=== PATIENT | male | born 1975 | race African-American/Black ===

== ENCOUNTER 2020-02-11 09:05 | Emergency (ER) | payer OTHER ==
[~2020-02-11] VITALS: Ht 185.4 cm; Wt 89.0 kg
--- NOTE | 2020-02-11 09:23 | PHYS DOC ---
Past History Past Medical History: Arthritis Past Surgical History: No Surgical History Alcohol Use: Occasionally Drug Use: None General Adult EDM: Chief Complaint: TESTICULAR PAIN OR INJURY HPI: HPI: The history was obtained from the patient. Patient is a 44-year-old male with PMH [id number] diabetes, asthma who presents with a chief complaint of right testicle pain. Patient states he has had intermittent right testicle pain over the past 2 weeks. He states it feels similar to a "pinprick." He states he did have one brief episode of abdominal aching pain that lasted a few seconds and resolved. Denies nausea or vomiting. Notes he has had similar symptoms years ago and had an ultrasound performed. He thinks that he maybe was diagnosed with epididymitis. States she is sexually active with one partner. Does note history of sexually transmitted infection in college. Denies any current penile discharge. Denies dysuria, hematuria, or polyuria. Denies any swelling or skin changes to the testicle. Assess. States nothing seems to trigger the discomfort. Has not tried anything for pain. Denies any pain with bowel movement. No other complaints. Review of Systems: Review of Systems: Constitutional: Denies fever or chills Eyes: Denies change in visual acuity HENT: Denies nasal congestion or sore throat Respiratory: Denies cough or shortness of breath Cardiovascular: Denies chest pain or edema GI: Denies abdominal pain, nausea, vomiting, bloody stools or diarrhea : Positive for testicle pain Musculoskeletal: Denies back pain or joint pain Integument: Denies rash Neurologic: Denies headache, focal weakness or sensory changes Endocrine: Denies polyuria or polydipsia Lymphatic: Denies swollen glands Psychiatric: Denies depression or anxiety Heart Score: Risk Factors: Risk Factors: DM, Current or recent (<one month) smoker, HTN, HLP, family history of CAD, obesity. Risk Scores: Score 0 - 3: 2.5% MACE over next 6 weeks - Discharge Home Score 4 - 6: 20.3% MACE over next 6 weeks - Admit for Clinical Observation Score 7 - 10: 72.7% MACE over next 6 weeks - Early Invasive Strategies Physical Exam: PE: Constitutional: Well developed, well nourished, no acute distress, non-toxic appearance. [] HENT: Normocephalic, atraumatic, bilateral external ears normal, oropharynx moist, no oral exudates, nose normal. [] Eyes: PERRLA, EOMI, conjunctiva normal, no discharge. [] Neck: Normal range of motion, no tenderness, supple, no stridor. [] Cardiovascular:Heart rate regular rhythm, no murmur [] Lungs & Thorax: Bilateral breath sounds clear to auscultation [] Abdomen: Bowel sounds normal, soft, no tenderness, no masses, no pulsatile masses. [] Skin: Warm, dry, no erythema, no rash. [] Back: No tenderness, no CVA tenderness. [] Extremities: No tenderness, no cyanosis, no clubbing, ROM intact, no edema. [] Neurologic: Alert and oriented X 3, normal motor function, normal sensory function, no focal deficits noted. [] Psychologic: Affect normal, judgement normal, mood normal. [] Current Patient Data: Labs: Laboratory Tests Test 02/11/20 09:25 Urine Collection Type Unknown Urine Color Yellow Urine Clarity Clear Urine pH 6.0 Urine Specific [place] 1.010 Urine Protein Neg Urine Glucose (UA) Neg mg/dL Urine Ketones (Stick) Neg mg/dL Urine Blood Neg Urine Nitrite Neg Urine Bilirubin Neg Urine Urobilinogen Dipstick 0.2 mg/dL Urine Leukocyte Esterase Neg Urine RBC 0 /HPF Urine WBC Occ /HPF Urine Squamous Epithelial Cells Occ /LPF Urine Bacteria 0 /HPF Vital Signs: Vital Signs Date Time Temp Pulse Resp B/P (MAP) Pulse Ox O2 Delivery O2 Flow Rate FiO2 02/11/20 09:38 97.9 78 18 164/93 (116) 96 Room Air EKG: EKG: [] Radiology/Procedures: Radiology/Procedures: [][address] [address] IMAGING REPORT Signed PATIENT: NAVARRO GARCIA ACCOUNT: [id number] : 1975 LOCATION: ER AGE: 44 SEX: M EXAM STATUS: REG ER ORD. PHYSICIAN: JASWINDER ARIAS DO REASON: right testicle pain PROCEDURE: TESTICULAR/SCROTUM EXAM: Scrotal Ultrasound INDICATION: Reason: right testicle pain / Spl. Instructions: / History: TECHNIQUE: Real-time ultrasound of the scrotum with permanent freeze-frame documentation. COMPARISON:?None. FINDINGS: RIGHT: TESTICLE: 4.5 x 3.5 x 2.0 cm. Unremarkable. Normal blood flow. EPIDIDYMIS: Unremarkable. OTHER: No varicocele or hydrocele. LEFT: TESTICLE: 3.9 x 3.3 x 1.9 cm. Unremarkable. Normal blood flow. EPIDIDYMIS: Normal. Tiny epididymal head cyst measuring 3 x 3 x 2 mm noted. OTHER: Small left hydrocele SCROTAL WALL: Unremarkable. IMPRESSION: Small left hydrocele. Otherwise normal scrotal ultrasound with no evidence of testicular torsion. Electronically signed by: Rowan Lewis MD (02/11/2020 10:03 AM) [id number] DICTATED AND SIGNED BY: ROWAN LEWIS MD DATE: 02/11/20 1003 CC: OSKAR THAYER; JASWINDER ARIAS DO ~ Course & Med Decision Making: Course & Med Decision Making Pertinent Labs and Imaging studies reviewed. (See chart for details) [] Patient is a well-appearing 44-year-old male who presents with chief complaint of intermittent right testicular discomfort. Initial vital signs normal. Exam overall reassuring. No testicular tenderness. No inguinal masses noted. Ultrasound overall reassuring. Normal flow to the testicles bilaterally. No obvious signs of epididymitis. Urinalysis without evidence of infection. Chlamydia and gonorrhea cultures via urine sample are pending. Given there are no signs of clinical infection antibiotics to be deferred. The exact cause of his discomfort is unknown however could related to a small epididymal cyst. He will be given a urology referral to follow-up with. return precautions discussed and understood. Encouraged to use NSAIDs for pain relief. Instructed to follow-up with his primary care physician in the next 2 to 3 days. Stable for discharge home. Dragon Disclaimer: Angi Disclaimer: This electronic medical record was generated, in whole or in part, using a voice recognition dictation system. Departure Departure: Impression: Primary Impression: Right testicular pain Disposition: 01 HOME/RESIDENCE PRIOR TO ADM Condition: STABLE Referrals: OSKAR THAYER (PCP) Patient Instructions: Testicular Problems and Self-Exam Additional Instructions: Dr. David Alexander [place] [address] [place] [address] [address] [place] [address] Call [place] [phone] Justification of Admission: Justification of Admission: Justification of Admission Dx: N/A JASWINDER ARIAS DO Feb 11, 2020 09:23
[2020-02-11 09:55] LABS: BACTERIA,URINE 0 /HPF (0-FEW); BILIRUBIN,URINE NEG (NEG); CLARITY,URINE CLEAR; COLOR,URINE YELLOW; GLUCOSE,URINE NEG (NEG); NITRITE,URINE NEG (NEG); RBC,URINE 0 /HPF (0-2); SQUAMOUS EPITHELIAL CELL,UR OCC /LPF; UROBILINOGEN,URINE 0.2 mg/dL (0.2 mg/dL); WBC,URINE OCC /HPF (0-4)
--- NOTE | 2020-02-11 10:06 | RAD ---
EXAM: Scrotal Ultrasound INDICATION: Reason: right testicle pain / Spl. Instructions: / History: ? TECHNIQUE: Real-time ultrasound of the scrotum with permanent freeze-frame documentation. ? COMPARISON:?None. ? FINDINGS: RIGHT: TESTICLE: 4.5 x 3.5 x 2.0 cm. Unremarkable. Normal blood flow. EPIDIDYMIS: Unremarkable. OTHER: No varicocele or hydrocele. LEFT: TESTICLE: 3.9 x 3.3 x 1.9 cm. Unremarkable. Normal blood flow. EPIDIDYMIS: Normal. Tiny epididymal head cyst measuring 3 x 3 x 2 mm noted. OTHER: Small left hydrocele SCROTAL WALL: Unremarkable. IMPRESSION: ? Small left hydrocele. Otherwise normal scrotal ultrasound with no evidence of testicular torsion. Electronically signed by: Martin Lewis MD (02/11/2020 10:03 AM) [id number]
[2020-02-11 10:34] VITALS: BP 152/94
== END 2020-02-11 10:30 | disposition home or self-care (01) ==
LOC: ER 09:05
DX: N50.811 Right testicular pain (principal); J45.909 Unspecified asthma, uncomplicated; E11.9 Type 2 diabetes mellitus without complications
CPT/HCPCS: 36415; 76870; 81001; 87491; 87591; 99284